=== PATIENT | female | born 1945 | race Caucasian/White ===

== ENCOUNTER → 2016-11-05 | Outpatient (CLI) | payer OTHER, BC ==
[~2016-11-05] MED LIST: GABA-113 PO; GFNSR600 PO; IPRASOL4 INH; LANS30CA12 PO; LVQ750 PO; MULT-506 PO; OMEP20CA9 PO; PARO1TAB27 PO; PRVHFAIN INH
--- NOTE | 2016-11-05 14:08 | DIAGNOSTIC IMAGING REPORT ---
RIGHT HIP UNILATERAL MIN 2 VIEWS CLINICAL HISTORY: Increasing right hip pain. COMPARISON: None FINDINGS: Alignment of the right hip is anatomic. There is no fracture or suspicious lesion. There is no evidence for avascular necrosis. The hip joint spaces preserved. There is moderate osteophytosis. IMPRESSION: 1. No acute fracture. 2. Mild to moderate osteoarthritis of the right hip. Preserved hip joint space with moderate osteophytosis. Electronically signed by: Davey Orona M.D. 11/05/2016 2:07 PM Dictated Date/Time: 11/05/2016 2:06 PM
== END | disposition home or self-care (01) ==
LOC: C.RDSM 11:46
PROVIDERS: ATTEND Family Medicine
DX: M16.11 Unilateral primary osteoarthritis, right hip (principal)

== ENCOUNTER → 2016-12-24 | Outpatient (CLI) | payer OTHER, BC ==
--- NOTE | 2016-12-24 15:59 | DIAGNOSTIC IMAGING REPORT ---
TEMPORARY HISTORY: -old Unknown acute right-sided hip pain without reported trauma. COMPARISON: Right hip radiographs 11/05/2016 TECHNIQUE: Single AP view of the pelvis FINDINGS: Moderate osteoarthritis is seen within the bilateral hips. Bilateral femora and pelvis appears intact. There is no acute fracture or dislocation. Degenerative changes of the lower lumbar spine. IMPRESSION: 1. No acute fracture or dislocation. 2. Moderate osteoarthritis of the bilateral hips. The above report was generated using voice recognition software. It may contain grammatical, syntax or spelling errors. Electronically signed by: Nigel Rao M.D. 12/24/2016 3:43 PM Dictated Date/Time: 12/24/2016 3:42 PM
== END | disposition home or self-care (01) ==
LOC: C.RDSM 14:59
PROVIDERS: ATTEND Family Medicine
DX: M25.551 Pain in right hip (principal); M16.0 Bilateral primary osteoarthritis of hip

== ENCOUNTER 2017-07-16 15:36 | Inpatient (IN) | payer OTHER, BC ==
[~2017-07-16] VITALS: Ht 154.9 cm; Wt 78.1 kg
[2017-07-16] MEDS ORDERED: SODIUM CHLORIDE 0.9% 1000ML 1,000 ML IV SCH ×2 (16:04→22:00)
[2017-07-16] MEDS ORDERED: OMEP20TA40 PO (16:04)
[2017-07-16] MEDS ORDERED: GABA-1219 PO (16:04)
[2017-07-16] MEDS ORDERED: ULT50 PO (16:04)
[2017-07-16] MEDS ORDERED: CYM60 PO (16:04)
[2017-07-16] MEDS ORDERED: CYM30 PO (16:04)
[2017-07-16] MEDS ORDERED: SIMV-150 PO (16:04)
[2017-07-16] MEDS ORDERED: OPTIRAY 320 IV PRN (16:15)
[2017-07-16 16:17] LABS: BASO % 0.6 %; BASO ABS # 0.04 K/uL (0-0.2); EOS % 0.9 %; EOS ABS # 0.06 K/uL (0-0.5); HEMATOCRIT 43.5 % (37-47); HEMOGLOBIN 15.3 g/dL (12.0-16.0); IG# 0.02 K/uL (0.00-0.02); LYMPH % 17.5 %; LYMPH ABS # 1.17 K/uL (1.2-3.4); MEAN CORPUSCULAR HGB CONC 35.2 g/dl (32-36); MEAN PLATELET VOLUME 10.8 fL (7.4-10.4); MONO ABS # 0.67 K/uL (0.11-0.59); NEUT % 70.7 %; NEUT ABS # 4.72 K/uL (1.4-6.5); PLATELET COUNT 209 K/uL (130-400); RED CELL DISTRIBUTION WIDTH CV 13.4 % (11.5-14.5); RED CELL DISTRIBUTION WIDTH SD 44.8 fL (36.4-46.3); WHITE BLOOD COUNT 6.68 K/uL (4.8-10.8)
[2017-07-16 16:22] LABS: ISTAT CREATININE 0.6 mg/dl (0.6-1.3); ISTAT IONIZED CALCIUM 1.1 mmol/l (1.12-1.32)
--- NOTE | 2017-07-16 16:25 | DIAGNOSTIC IMAGING REPORT ---
CT OF THE HEAD WITHOUT CONTRAST CLINICAL HISTORY: Stroke symptoms. COMPARISON STUDY: No previous studies for comparison. CT DOSE: 729.78 mGycm TECHNIQUE: Helical axial images of the head were obtained without IV contrast. Automated exposure control was utilized for the study. A dose lowering technique was utilized adhering to the principles of ALARA. FINDINGS: No acute intracranial hemorrhage, midline shift or mass effect is present. Ventricular system is normal. Basilar cisterns are patent. There are no extra axial collections. White matter hypodensities likely reflect small vessel disease. There is suspected subtle loss of gonsalez-white differentiation within the left frontal lobe shown best on axial images 22 and 23. There is no mass effect. There are no significant calvarial abnormalities. Visualized portions of the sinuses and mastoid air cells are clear. IMPRESSION: 1. No acute intracranial hemorrhage or mass effect. 2. Suspected loss of gonsalez-white differentiation within a portion of the left frontal lobe which suggests an acute left MCA infarct. Electronically signed by: Davey Orona M.D. 07/16/2017 4:23 PM Dictated Date/Time: 07/16/2017 4:17 PM
[2017-07-16 16:26] LABS: PTT PATIENT 24.3 SECONDS (21.0-31.0)
[2017-07-16] MEDS ORDERED: SODIUM CHLORIDE 0.9% 1000ML 1,000 ML IV STA (16:30)
[2017-07-16] MEDS ORDERED: MAGNESIUM SULFATE 1GM / D5W 1 GM BAG ONE (16:33)
--- NOTE | 2017-07-16 16:33 | DIAGNOSTIC IMAGING REPORT ---
HEAD ANGIO WITH CONTRAST CLINICAL HISTORY: L status change stroke TECHNIQUE: Transaxial acquisition with multi axial reformatted images COMPARISON STUDY: None FINDINGS: All major intracranial vasculature is unremarkable. No evidence for aneurysm or dissection. Major structures the anterior middle and posterior cerebral circulation are intact. IMPRESSION: Negative study The above report was generated using voice recognition software. It may contain grammatical, syntax or spelling errors. Electronically signed by: David Ordaz M.D. 07/16/2017 4:32 PM Dictated Date/Time: 07/16/2017 4:28 PM
[2017-07-16] MEDS ORDERED: MAGNESIUM SULFATE 1GM / D5W 1 GM BAG IV STA (16:35)
[2017-07-16 16:36] LABS: BLOOD UREA NITROGEN 12 mg/dl (7-18); CALCIUM 8.8 mg/dl (8.5-10.1); CARBON DIOXIDE 26 mmol/L (21-32); CREATININE 0.59 mg/dl (0.60-1.20); GLUCOSE 103 mg/dl (70-99); SODIUM 138 mmol/L (136-145)
[2017-07-16 16:41] LABS: CKMB 1.1 ng/ml (0.5-3.6)
--- NOTE | 2017-07-16 16:48 | DIAGNOSTIC IMAGING REPORT ---
CT ANGIOGRAPHY OF THE NECK WITH CONTRAST CLINICAL HISTORY: Stroke symptoms. COMPARISON STUDY: No previous studies for comparison. Technique: CT angiography of the carotid and vertebral arteries was obtained using Lela 320 IV and 3D reconstruction on an independent workstation. NASCET criteria was utilized. A dose lowering technique was utilized adhering to the principles of ALARA. CT DOSE: 935.06 mGycm Findings: There is moderate atherosclerotic plaque within the proximal bilateral internal carotid arteries without significant stenosis within these vessels. The posterior circulation is intact. There is no dissection. The origins of the great vessels are patent. Lung apices are clear. There is no cervical lymphadenopathy. The left submandibular gland is not visualized. There are several suspected calculi within the left submandibular duct which measure up to 4 mm. IMPRESSION: 1. Moderate atherosclerotic plaque within the bilateral internal carotid arteries without significant stenosis. No dissection. 2. Nonvisualization of the left submandibular gland. Suspected multiple calculi within left submandibular duct. Electronically signed by: Davey Orona M.D. 07/16/2017 4:46 PM Dictated Date/Time: 07/16/2017 4:34 PM
[2017-07-16] MEDS ORDERED: ASPIRIN 300 MG SUPP PR STA (16:54)
--- NOTE | 2017-07-16 16:58 | EMERGENCY ROOM VISIT NOTE ---
History Report prepared by Valerie: Katie Gomez Under the Supervision of: Dr. José Miguel Lozano M.D. First contact with patient: 16:04 Chief Complaint: STROKE SYMPTOMS Stated Complaint: STROKE SYMPTOMS Nursing Triage Summary: Woke up with right sided weakness. Patient with slurred speech. Right sided facial droop. Patient drove herself here. History of Present Illness The patient is a 71 year old female who presents to the Emergency Room with complaints of persistent stroke symptoms that began this morning, about 5 hours ago. She reports that when she woke up, she had right sided tongue swelling and was slurring her words. Throughout the day, the patient began experiencing a worsening right sided facial droop and inability to swallow. The patient states that about 3 hours ago, she began experiencing weakness in her right arm, noting that she currently cannot move her arm the way she normally can. She drove herself here. The patient's sister states that the patient is a heavy smoker. Source of History: patient, family (sister) Onset: this morning Position: other (cerebrovascular) Symptom Intensity: right sided facial droop and arm weakness Quality: other (stroke like symptoms) Timing: other (persistent) Note: Associated symptoms include: slurring her words, inability to swallow, right sided facial droop, and right sided arm weakness. Review of Systems See HPI for pertinent positives & negatives. A total of 10 systems reviewed and were otherwise negative. Past Medical & Surgical Medical Problems: (1) Anxiety (2) Depression (3) Fibromyalgia (4) Generalized OA (5) GERD (gastroesophageal reflux disease) (6) Obesity (BMI 30-39.9) (7) Stroke (8) Tobacco abuse disorder Family History FH: Alzheimers disease FH: CAD (coronary artery disease) FH: lymphoma Social History Smoking Status: Current Every Day Smoker Smokeless Tobacco Use: Unknown Alcohol Use: none Drug Use: none Current/Historical Medications Scheduled Duloxetine HCl (Duloxetine HCl), 30 MG PO DAILY Duloxetine HCl (Duloxetine HCl), 60 MG PO DAILY Gabapentin (Gabapentin), 300 MG PO TID Multivitamin (Multivitamin), 1 TAB PO QPM Omeprazole ([facility] Omeprazole), 20 MG PO DAILY Simvastatin (Simvastatin), 10 MG PO HS Scheduled PRN Tramadol HCl (Tramadol HCl), 50 MG PO BID PRN for Pain Allergies Coded Allergies: No Known Allergies (Unverified , 07/16/17) Physical Exam Vital Signs Date Time Temp Pulse Resp B/P (MAP) Pulse Ox O2 Delivery O2 Flow Rate FiO2 07/16/17 16:38 71 07/16/17 16:30 73 18 172/87 95 Room Air 07/16/17 16:30 96 Room Air 07/16/17 15:39 36.8 80 20 160/99 97 Room Air Physical Exam GENERAL: Awake, alert, well-appearing, in no acute distress HENT: Normocephalic, atraumatic. Oropharynx unremarkable. EYES: Normal conjunctiva. Sclera non-icteric. NECK: Supple. No nuchal rigidity. FROM. No JVD. RESPIRATORY: Clear to auscultation. CARDIAC: Regular rate, normal rhythm. Extremities warm and well perfused. Pulses equal. ABDOMEN: Soft, non-distended. No tenderness to palpation. No rebound or guarding. No masses. RECTAL: Deferred. MUSCULOSKELETAL: Chest examination reveals no tenderness. The back is symmetrical on inspection without obvious abnormality. There is no CVA tenderness to palpation. No joint edema. LOWER EXTREMITIES: Calves are equal size bilaterally and non-tender. No edema. No discoloration. NEURO: 3/5 strength in right arm. Obvious right sided facial droop. SKIN: No rash or jaundice noted. Medical Decision & Procedures ER Provider Diagnostic Interpretation: Radiology results as stated below per my review and radiologist interpretation: HEAD ANGIO WITH CONTRAST CLINICAL HISTORY: L status change stroke TECHNIQUE: Transaxial acquisition with multi axial reformatted images COMPARISON STUDY: None FINDINGS: All major intracranial vasculature is unremarkable. No evidence for aneurysm or dissection. Major structures the anterior middle and posterior cerebral circulation are intact. IMPRESSION: Negative study The above report was generated using voice recognition software. It may contain grammatical, syntax or spelling errors. Electronically signed by: David Ordaz M.D. 07/16/2017 4:32 PM Dictated Date/Time: 07/16/2017 4:[address] ANGIOGRAPHY OF THE NECK WITH CONTRAST CLINICAL HISTORY: Stroke symptoms. COMPARISON STUDY: No previous studies for comparison. Technique: CT angiography of the carotid and vertebral arteries was obtained using [employer] 320 IV and 3D reconstruction on an independent workstation. NASCET criteria was utilized. A dose lowering technique was utilized adhering to the principles of ALARA. CT DOSE: 935.06 mGycm Findings: There is moderate atherosclerotic plaque within the proximal bilateral internal carotid arteries without significant stenosis within these vessels. The posterior circulation is intact. There is no dissection. The origins of the great vessels are patent. Lung apices are clear. There is no cervical lymphadenopathy. The left submandibular gland is not visualized. There are several suspected calculi within the left submandibular duct which measure up to 4 mm. IMPRESSION: 1. Moderate atherosclerotic plaque within the bilateral internal carotid arteries without significant stenosis. No dissection. 2. Nonvisualization of the left submandibular gland. Suspected multiple calculi within left submandibular duct. Electronically signed by: Davey Orona M.D. 07/16/2017 4:46 PM Dictated Date/Time: 07/16/2017 4:[address] OF THE HEAD WITHOUT CONTRAST CLINICAL HISTORY: Stroke symptoms. COMPARISON STUDY: No previous studies for comparison. CT DOSE: 729.78 mGycm TECHNIQUE: Helical axial images of the head were obtained without IV contrast. Automated exposure control was utilized for the study. A dose lowering technique was utilized adhering to the principles of ALARA. FINDINGS: No acute intracranial hemorrhage, midline shift or mass effect is present. Ventricular system is normal. Basilar cisterns are patent. There are no extra axial collections. White matter hypodensities likely reflect small vessel disease. There is suspected subtle loss of gonsalez-white differentiation within the left frontal lobe shown best on axial images 22 and 23. There is no mass effect. There are no significant calvarial abnormalities. Visualized portions of the sinuses and mastoid air cells are clear. IMPRESSION: 1. No acute intracranial hemorrhage or mass effect. 2. Suspected loss of gonsalez-white differentiation within a portion of the left frontal lobe which suggests an acute left MCA infarct. Electronically signed by: Davey Orona M.D. 07/16/2017 4:23 PM Dictated Date/Time: 07/16/2017 4:17 PM CHEST ONE VIEW PORTABLE CLINICAL HISTORY: Stroke COMPARISON STUDY: Chest radiograph and chest CT August 09, 2015. FINDINGS: Lung volumes are normal. There is no pneumothorax or pleural effusion. Mild linear bibasilar opacities favor atelectasis. Mild cardiomegaly is noted. There is no evidence for pulmonary edema. IMPRESSION: No acute cardiopulmonary findings. Electronically signed by: Davey Orona M.D. 07/16/2017 5:18 PM Dictated Date/Time: 07/16/2017 5:17 PM Laboratory Results 07/16/17 16:00 Red Blood Count 4.78, Mean Corpuscular Volume 91.0, Mean Corpuscular Hemoglobin 32.0, Mean Corpuscular Hemoglobin Concent 35.2, Mean Platelet Volume 10.8, Neutrophils (%) (Auto) 70.7, Lymphocytes (%) (Auto) 17.5, Monocytes (%) (Auto) 10.0, Eosinophils (%) (Auto) 0.9, Basophils (%) (Auto) 0.6, Neutrophils # (Auto ) 4.72, Lymphocytes # (Auto) 1.17, Monocytes # (Auto) 0.67, Eosinophils # (Auto ) 0.06, Basophils # (Auto) 0.04 07/16/17 16:00 Test 07/16/17 16:00 07/16/17 16:09 07/16/17 16:12 07/16/17 17:06 White Blood Count 6.68 K/uL (4.8-10.8) Red Blood Count 4.78 M/uL (4.2-5.4) Hemoglobin 15.3 g/dL (12.0-16.0) Hematocrit 43.5 % (37-47) Mean Corpuscular Volume 91.0 fL (80-100) Mean Corpuscular Hemoglobin 32.0 pg (25-34) Mean Corpuscular Hemoglobin Concent 35.2 g/dl (32-36) Platelet Count 209 K/uL (130-400) Mean Platelet Volume 10.8 fL (7.4-10.4) Neutrophils (%) (Auto) 70.7 % Lymphocytes (%) (Auto) 17.5 % Monocytes (%) (Auto) 10.0 % Eosinophils (%) (Auto) 0.9 % Basophils (%) (Auto) 0.6 % Neutrophils # (Auto) 4.72 K/uL (1.4-6.5) Lymphocytes # (Auto) 1.17 K/uL (1.2-3.4) Monocytes # (Auto) 0.67 K/uL (0.11-0.59) Eosinophils # (Auto) 0.06 K/uL (0-0.5) Basophils # (Auto) 0.04 K/uL (0-0.2) RDW Standard Deviation 44.8 fL (36.4-46.3) RDW Coefficient of Variation 13.4 % (11.5-14.5) Immature Granulocyte % (Auto) 0.3 % Immature Granulocyte # (Auto) 0.02 K/uL (0.00-0.02) Prothrombin Time 10.3 SECONDS (9.0-12.0) Prothromb Time International Ratio 1.0 (0.9-1.1) Activated Partial Thromboplast Time 24.3 SECONDS (21.0-31.0) Partial Thromboplastin Ratio 0.9 Est Creatinine Clear Calc Drug Dose 82.8 ml/min Estimated GFR () 108.4 Estimated GFR (Non- 93.5 BUN/Creatinine Ratio 20.6 (10-20) Calcium Level 8.8 mg/dl (8.5-10.1) Magnesium Level 2.2 mg/dl (1.8-2.4) Total Creatine Kinase 55 U/L (26-192) Creatine Kinase MB 1.1 ng/ml (0.5-3.6) Creatine Kinase MB Ratio 2.0 (0-3.0) Troponin I < 0.015 ng/ml (0-0.045) Triglycerides Level 48 mg/dl (0-150) Cholesterol Level 138 mg/dl (0-200) HDL Cholesterol 54 mg/dl LDL Cholesterol, Calculated 74 mg/dl VLDL Cholesterol, Calculated 10 mg/dl Cholesterol/HDL Ratio 2.6 Bedside Glucose 104 mg/dl (70-90) Bedside Hemoglobin 15.0 g/dl (12.0-16.0) Bedside Hematocrit 44 % (37-47) Bedside Sodium 141 mEq/L (135-144) Bedside Potassium 4.0 mEq/L (3.3-5.0) Bedside Chloride 103 mEq/L (101-112) Bedside Total CO2 27 mEq/l (24-31) Anion Gap 16.0 mmol/L (16-25) Bedside Blood Urea Nitrogen 12 mg/dl (7-18) Bedside Creatinine 0.6 mg/dl (0.6-1.3) Bedside Glucose (other) 104 mg/dl (70-99) Bedside Ionized Calcium (Denys) 1.10 mmol/l (1.12-1.32) Urine Color YELLOW Urine Appearance CLEAR (CLEAR) Urine pH 6.5 (4.5-7.5) Urine Specific [place] <= 1.005 (1.000-1.030) Urine Protein NEG (NEG) Urine Glucose (UA) NEG (NEG) Urine Ketones NEG (NEG) Urine Occult Blood TRACE (NEG) Urine Nitrite NEG (NEG) Urine Bilirubin NEG (NEG) Urine Urobilinogen NEG (NEG) Urine Leukocyte Esterase NEG (NEG) Urine RBC 0-4 /hpf (0-4) Urine WBC 0 /hpf (0-5) Urine Epithelial Cells 0-5 /lpf (0-5) Urine Bacteria NEG (NEG) Labs reviewed by ED physician. Medications Administered Medications (Trade) Dose Ordered Sig/Martha Route Start Time Stop Time Status Last Admin Dose Admin Sodium Chloride 1,000 ml @ 999 mls/hr Q1H1M STAT IV 07/16/17 16:30 07/16/17 17:30 DC 07/16/17 16:36 999 MLS/HR Magnesium Sulfate (Magnesium Sulfate) 1 gm NOW STAT IV 07/16/17 16:35 07/16/17 16:36 DC 07/16/17 16:37 1 GM Aspirin (Aspirin Supp) 300 mg ONE STAT ID 07/16/17 16:54 07/16/17 16:55 DC 07/16/17 17:21 300 MG ECG Per My Interpretation Indication: other (stroke) Rate (beats per minute): 73 Rhythm: normal sinus Findings: other (No ST elevations or depression, old septal infarct) ED Course 1600: Past medical records reviewed. The patient was evaluated in room C6. A complete history and physical examination was performed. 1604: Ordered Sodium Chloride 1000ml @ 50mls/hr IV. 1610: The patient is being transported to CT. 1615: Ordered Ioversol 100ml IV. 1620: I discussed the patient's case with Dr. Orona. We discussed the patient's CT head findings. 1630: Ordered Sodium Chloride 1000ml @ 999 mls/hr IV. 1632: I discussed the patient's case with Dr. Daniel, [facility]. We evaluated the CT scans together. He does not think that she is a good candidate for TPA. Discussed the choice of going the patient TPA with the patient and her sister. Due to the circumstances, the four of decided not to give her TPA. 1633: Ordered Magnesium Sulfate 1gm IV. 1654: Ordered Aspirin 300mg. 1704: I discussed the patient's case with Pj Andujar PA-C. She has agreed to evaluate the patient for further management and care. 1716: I reevaluated the patient and updated her and her sister on the treatment plan. They verbalized complete understanding and agreement. Medical Decision Differential diagnosis: Etiologies such as metabolic, infection, hypo/hyperglycemia, electrolyte abnormalities, cardiac sources, intracerebral event, toxicologic, neurologic, as well as others were entertained. This is a 71-year-old female who presents emergency department. Upon arrival to the emergency department the patient has 3 out of 5 strength in her right arm and for this reason a stroke alert was immediately initiated. Due to [employer] downtime images had to be verbally reviewed with [facility] stroke neurologist. In addition the stroke neurologist cart was on was nonfunctioning however a telephone call with the neurologist confirmed that both myself and the neurologist felt that the patient did not meet TPA criteria as she awoke this morning at 11 AM with the start of symptoms. At this point we are 5 hours into the patient's symptoms. I expressed this to both patient and her sister and also expressed concerns over that she was at high risk for bleed if we did do TPA. A CTA of the head and neck were also performed which did not show any retrievable clot. Therefore the neurologist felt that the patient should take 324 mg of aspirin. I did discuss the case with the [facility] Hospital[facility]. Medication Reconcilliation Current Medication List: was personally reviewed by me Blood Pressure Screening Patient's blood pressure: Elevated blood pressure Blood pressure disposition: Elevated BP felt to be situational Consults Time Called: 1704 Consulting Physician: Pj Andujar PA-C Returned Call: 1704 I discussed the patient's case with Pj Andujar PA-C. She has agreed to evaluate the patient for further management and care. Impression Primary Impression: CVA (cerebral vascular accident) Critical Care I have personally spent greater than 30 minutes of critical care time in the direct management of this patient. This includes bedside care, interpretation of diagnostic studies, and testing, discussion with consultants, patient, and family members, and other required patient management activities. This 30 minutes is in excess of all separately billable procedures. Scribe Attestation The scribe's documentation has been prepared under my direction and personally reviewed by me in its entirety. I confirm that the note above accurately reflects all work, treatment, procedures, and medical decision making performed by me. Departure Information Dispostion Being Evaluated By Hospitalist Referrals Kary Chan D.O. (PCP) Forms HOME CARE DOCUMENTATION FORM, IMPORTANT VISIT INFORMATION Patient Instructions My [facility] Stroke History Time Last Known Well 1100 Stroke t-PA Criteria Reviewed Does NOT meet criteria for t-PA Reason t-PA Not Given Contraindicated Relative Exclusion Criteria CT w/ significant acute infarct Problem Qualifiers Primary Impression: CVA (cerebral vascular accident) CVA mechanism: unspecified Qualified Codes: I63.9 - Cerebral infarction, unspecified
--- NOTE | 2017-07-16 17:19 | DIAGNOSTIC IMAGING REPORT ---
CHEST ONE VIEW PORTABLE CLINICAL HISTORY: Stroke COMPARISON STUDY: Chest radiograph and chest CT August 09, 2015. FINDINGS: Lung volumes are normal. There is no pneumothorax or pleural effusion. Mild linear bibasilar opacities favor atelectasis. Mild cardiomegaly is noted. There is no evidence for pulmonary edema. IMPRESSION: No acute cardiopulmonary findings. Electronically signed by: Davey Orona M.D. 07/16/2017 5:18 PM Dictated Date/Time: 07/16/2017 5:17 PM
[2017-07-16] MEDS ORDERED: ACETAMINOPHEN 650 MG SUPP PR PRN (22:00)
[2017-07-16] MEDS ORDERED: LABETALOL HCL IV 5 MG/ML 20ML IV PRN (22:00)
[2017-07-16] MEDS ORDERED: ONDANSETRON INJ 2 MG/ML 2 ML VIAL IV PRN (22:00)
[2017-07-16] MEDS ORDERED: PHARMACIST DISCHARGE MED REC CONSULT PRN (22:15)
[2017-07-16] MEDS ORDERED: NITROGLYCERIN 0.4 MG SL PER TAB CHARGE SL PRN (22:15)
[2017-07-16] MEDS ORDERED: ACETAMINOPHEN 325 MG TAB PO PRN (22:15)
--- NOTE | 2017-07-16 22:44 | History and Physical ---
History & Physical Date & Time of Service: Jul 16, 2017 at 22:22 Chief Complaint: Stroke Primary Care Physician: Kary Chan D.O. History of Present Illness Source: patient, family, clinic records, hospital records Pt is 71 y/o F with PMH fibromyalgia, GERD, depression, anxiety, dyslipidemia presented to ER with complaint of right-sided facial drooping. Patient reports woke up around 11 AM today and noticed she had some slurred speech and had sensation that right side of tongue felt swollen. She had trouble swallowing her coffee. Patient states later looked in mirror and saw that she had right facial drooping and was able to smile. At approximately 1:00-2:00 PM patient reports right arm weakness. She proceeded to drive herself to the ER in a standard collar. Patient states once in the ER had worsening right arm weakness and was able to inspector tool with her right hand, which has since improved during ER course. Denies fever/chills, diaphoresis, N/V/D/C, JUNG, dizziness, syncope, vision changes, neck pain, CP, SOB, orthopnea, palpitations, cough, otalgia, rhinorrhea, abdominal pain, extremity edema, rashes, urinary symptoms. Denies history of HTN, TIA, stroke. In ER patient given aspirin 300 mg suppository, magnesium sulfate 1 g IV, 1 L NSS. Had her she telemetry stroke recommended no TPA. Past Medical/Surgical History Medical Problems: (1) Anxiety Status: Chronic (2) Depression Status: Chronic (3) Dyslipidemia Status: Chronic (4) Fibromyalgia Status: Chronic (5) Generalized OA Status: Chronic (6) GERD (gastroesophageal reflux disease) Status: Chronic (7) Obesity (BMI 30-39.9) Status: Chronic (8) Tobacco abuse disorder Status: Chronic Surgical Problems: (1) History of salivary gland disease Permanent Comment: hx salivary stones and removal L salivary gland Status: Resolved Family History FH: Alzheimers disease FH: CAD (coronary artery disease) FH: lymphoma Social History Smoking Status: Current Every Day Smoker (1ppd x 29 years) Smokeless Tobacco Use: No Alcohol Use: none Drug Use: none Marital Status: Housing status: lives alone Allergies Coded Allergies: No Known Allergies (Unverified , 07/16/17) Home Medications Scheduled Duloxetine HCl (Duloxetine HCl), 30 MG PO DAILY Duloxetine HCl (Duloxetine HCl), 60 MG PO DAILY Gabapentin (Gabapentin), 300 MG PO TID Multivitamin (Multivitamin), 1 TAB PO QPM Omeprazole ([facility] Omeprazole), 20 MG PO DAILY Simvastatin (Simvastatin), 10 MG PO HS Scheduled PRN Tramadol HCl (Tramadol HCl), 50 MG PO BID PRN for Pain Review of Systems See HPI for pertinent positives & negatives. All other systems reviewed and were otherwise negative Physical Exam Vital Signs Date Time Temp Pulse Resp B/P (MAP) Pulse Ox O2 Delivery O2 Flow Rate FiO2 07/16/17 16:38 71 07/16/17 16:30 73 18 172/87 95 Room Air 07/16/17 16:30 96 Room Air 07/16/17 15:39 36.8 80 20 160/99 97 Room Air General Appearance: no apparent distress, + obese Head: normocephalic, atraumatic Eyes: normal inspection, PERRL, EOMI, sclerae normal ENT: hearing grossly normal, pharynx normal, + pertinent finding (no pharyngeal erythema or edema. Tongue without significant erythema and without edema. uvula midline. mucous membranes moist. ) Neck: supple, no JVD, trachea midline Respiratory/Chest: lungs clear, normal breath sounds, no respiratory distress Cardiovascular: regular rate, rhythm, no murmur, normal peripheral pulses Abdomen/GI: normal bowel sounds, non tender, soft Extremities/Musculoskelatal: no calf tenderness, normal capillary refill, no pedal edema, non-tender, + pertinent finding (Right arm with ROM intact with slow movements. Right inspector tool strength slightly less than left side. ROM bilateral extremities intact with equal strength. distal pulses intact. sensation to light touch intact) Neurologic/Psych: alert, oriented x 3, + facial droop (right sided), + pertinent finding (+slurred speech. Tongue protrudes to right side. finger to nose intact bilaterally with slow movements with right hand. ) Skin: normal color, warm/dry Diagnostics Laboratory Results Results Past 24 Hours Test 07/16/17 16:00 07/16/17 16:09 07/16/17 16:12 07/16/17 17:06 Range/Units White Blood Count 6.68 4.8-10.8 K/uL Red Blood Count 4.78 4.2-5.4 M/uL Hemoglobin 15.3 12.0-16.0 g/dL Hematocrit 43.5 37-47 % Mean Corpuscular Volume 91.0 80-100 fL Mean Corpuscular Hemoglobin 32.0 25-34 pg Mean Corpuscular Hemoglobin Concent 35.2 32-36 g/dl Platelet Count 209 130-400 K/uL Mean Platelet Volume 10.8 7.4-10.4 fL Neutrophils (%) (Auto) 70.7 % Lymphocytes (%) (Auto) 17.5 % Monocytes (%) (Auto) 10.0 % Eosinophils (%) (Auto) 0.9 % Basophils (%) (Auto) 0.6 % Neutrophils # (Auto) 4.72 1.4-6.5 K/uL Lymphocytes # (Auto) 1.17 1.2-3.4 K/uL Monocytes # (Auto) 0.67 0.11-0.59 K/uL Eosinophils # (Auto) 0.06 0-0.5 K/uL Basophils # (Auto) 0.04 0-0.2 K/uL RDW Standard Deviation 44.8 36.4-46.3 fL RDW Coefficient of Variation 13.4 11.5-14.5 % Immature Granulocyte % (Auto) 0.3 % Immature Granulocyte # (Auto) 0.02 0.00-0.02 K/uL Prothrombin Time 10.3 9.0-12.0 SECONDS Prothromb Time International Ratio 1.0 0.9-1.1 Activated Partial Thromboplast Time 24.3 21.0-31.0 SECONDS Partial Thromboplastin Ratio 0.9 Sodium Level 138 136-145 mmol/L Potassium Level 4.0 3.5-5.1 mmol/L Chloride Level 106 98-107 mmol/L Carbon Dioxide Level 26 21-32 mmol/L Anion Gap 6.0 16.0 16-25 mmol/L Blood Urea Nitrogen 12 7-18 mg/dl Creatinine 0.59 0.60-1.20 mg/dl Est Creatinine Clear Calc Drug Dose 82.8 ml/min Estimated GFR () 108.4 Estimated GFR (Non- 93.5 BUN/Creatinine Ratio 20.6 10-20 Random Glucose 103 70-99 mg/dl Calcium Level 8.8 8.5-10.1 mg/dl Magnesium Level 2.2 1.8-2.4 mg/dl Total Creatine Kinase 55 26-192 U/L Creatine Kinase MB 1.1 0.5-3.6 ng/ml Creatine Kinase MB Ratio 2.0 0-3.0 Troponin I < 0.015 0-0.045 ng/ml Triglycerides Level 48 0-150 mg/dl Cholesterol Level 138 0-200 mg/dl HDL Cholesterol 54 mg/dl LDL Cholesterol, Calculated 74 mg/dl VLDL Cholesterol, Calculated 10 mg/dl Cholesterol/HDL Ratio 2.6 Bedside Glucose 104 70-90 mg/dl Bedside Hemoglobin 15.0 12.0-16.0 g/dl Bedside Hematocrit 44 37-47 % Bedside Sodium 141 135-144 mEq/L Bedside Potassium 4.0 3.3-5.0 mEq/L Bedside Chloride 103 101-112 mEq/L Bedside Total CO2 27 24-31 mEq/l Bedside Blood Urea Nitrogen 12 7-18 mg/dl Bedside Creatinine 0.6 0.6-1.3 mg/dl Bedside Glucose (other) 104 70-99 mg/dl Bedside Ionized Calcium (Denys) 1.10 1.12-1.32 mmol/l Urine Color YELLOW Urine Appearance CLEAR CLEAR Urine pH 6.5 4.5-7.5 Urine Specific [place] <= 1.005 1.000-1.030 Urine Protein NEG NEG Urine Glucose (UA) NEG NEG Urine Ketones NEG NEG Urine Occult Blood TRACE NEG Urine Nitrite NEG NEG Urine Bilirubin NEG NEG Urine Urobilinogen NEG NEG Urine Leukocyte Esterase NEG NEG Urine RBC 0-4 0-4 /hpf Urine WBC 0 0-5 /hpf Urine Epithelial Cells 0-5 0-5 /lpf Urine Bacteria NEG NEG Diagnostic Radiology CT HEAD: IMPRESSION: 1. No acute intracranial hemorrhage or mass effect. 2. Suspected loss of gonsalez-white differentiation within a portion of the left frontal lobe which suggests an acute left MCA infarct. CXR: IMPRESSION: No acute cardiopulmonary findings. CTA HEAD: IMPRESSION: Negative study CTA NECK: IMPRESSION: 1. Moderate atherosclerotic plaque within the bilateral internal carotid arteries without significant stenosis. No dissection. 2. Nonvisualization of the left submandibular gland. Suspected multiple calculi within left submandibular duct. EKG EKG: NSR, L anterior fascicular block Read by rfid strategist: Normal sinus rhythm Left anterior fascicular block Cannot rule out Inferior infarct (cited on or before 09-AUG-2015) Abnormal ECG When compared with ECG of 09-AUG-2015 17:48, Questionable change in initial forces of Anterior leads Confirmed by Carroll Hubbard ([id number]) on 07/16/2017 4:45:53 PM Impression Assessment and Plan R SIDED FACIAL DROOP/DYSPHAGIA/STROKE Symptoms noticed when pt woke up at approx 11AM this morning with slurred speech , R facial drooping, then R arm weakness. Tele stroke recommended no TPA and recommended ASA. Pt given ASA 300mg per rectum In ER CT HEAD: 1. No acute intracranial hemorrhage or mass effect. 2. Suspected loss of gonsalez-white differentiation within a portion of the left frontal lobe which suggests an acute left MCA infarct. CTA HEAD: Negative study CTA NECK: 1. Moderate atherosclerotic plaque within the bilateral internal carotid arteries without significant stenosis. No dissection. -admit tele -stroke set protocol -neuro checks Q4H -NPO with dysphagia until evaluated by speech therapy -holding po home meds at this time -holding on statin and plavix at this time 2/2 dysphagia -NSS 50ml/hr -Labetalol 10mg IV Q6H prn SBP>220 or DBP>140 -ASA 300mg supp per rectum tomorrow am -Echo -pending lipid panel -TSH added -CBC, PRP in am -smoking cessation counseling -speech therapy consult -PT/OT eval -Neuro consult, appreciate input DYSLIPIDEMIA Pending lipid panel -holding statin 2/2 dysphagia GERD -holding oral PPI 2/2 dysphagia -IV PPI today DEPRESSION/ANXIETY -holding Cymbalta 2/2 dysphagia FIBROMYALGIA -holding gabapentin 2/2 dysphagia DVT Prophylaxis -Heparin SQ Disposition admit tele Full Code as per discussion with pt Follows with Dr Chan for routine care Pt was seen with Dr Riley. See addendum Attending Note: Patient is a 71 yr female who presents with history of sudden onset of Right facial droop, Slurred speech, Dysphagia, RUE weakness as per HPI. Patient's CT head is suggestive acute left MCA infarct. Patient's symptoms (Speech and RUE weakness) improved after administration of Aspirin while in ED. She is a current smoker. Denies Strokes/ TIAs in the past Physical Exam: Vitals signs as noted above General Appearance:Moderately built and nourished, no apparent distress Head: normocephalic, Atraumatic, +R facial droop Eyes: normal inspection, EOMI, PERRL Neck: supple, Trachea midline Respiratory/Chest: Normal breath sounds, CTA, No accessory muscle use Cardiovascular: S1, S2, No murmur Abdomen/GI:Soft, Non tender, Bowel sounds present Extremities/Musculoskelatal:normal inspection, no edema Neurologic/Psych:AAOX3, RUE 4/5, R facial droop, Slurred speech, No other focal deficits Skin:normal color,warm Assessment and Plan: Acute Left MCA CVA: Not a candidate for tPA- Passed the window period Admit in Tele CT head: suggestive of acute CVA Stroke work up as above Speech and swallow eval Start aspirin Plan to start Lipitor, Plavix as able (Currently has dysphagia) Neuro checks, Neurology consult PT/OT Allow permissive HTN in setting of acute CVA counselled to quit smoking I personally reviewed the record. Patient is interviewed and examined at bedside. Patient's care is coordinated with Sheridan Vila PA-C. Please refer to the documentation above for details of patient's presentation and for discussion of other issues. Resuscitation Status VTE Prophylaxis Will order VTE Prophylaxis: Yes Additional Copies To Kary Chan D.O.
[2017-07-17] VITALS (13 sets, daily range): BP systolic 125–170; BP diastolic 67–88; PULSE 54–67; TEMP 36.4–37.3; O2SAT 92–98; Ht 154.9 cm; Wt 78.1 kg
[2017-07-17] MEDS: HEPARIN SOD 5000 UNIT/0.5 ML CARP SQ SCH ×3 (06:13→21:43)
[2017-07-17 06:48] LABS: HEMATOCRIT 41.1 % (37-47); HEMOGLOBIN 14.5 g/dL (12.0-16.0); MEAN CELL VOLUME 91.3 fL (80-100); MEAN CORPUSCULAR HEMOGLOBIN 32.2 pg (25-34); MEAN CORPUSCULAR HGB CONC 35.3 g/dl (32-36); MEAN PLATELET VOLUME 10.9 fL (7.4-10.4); PLATELET COUNT 200 K/uL (130-400); RED CELL DISTRIBUTION WIDTH CV 13.4 % (11.5-14.5); RED CELL DISTRIBUTION WIDTH SD 44.3 fL (36.4-46.3); WHITE BLOOD COUNT 6.52 K/uL (4.8-10.8)
[2017-07-17 07:22] LABS: CALCIUM 8.5 mg/dl (8.5-10.1); CREATININE 0.5 mg/dl (0.60-1.20); POTASSIUM 3.7 mmol/L (3.5-5.1)
[2017-07-17] MEDS ORDERED: ASPIRIN 300 MG SUPP PR SCH (09:00)
--- NOTE | 2017-07-17 10:42 | ECHOCARDIOGRAM REPORT ---
*NOTICE TO RECEIVING REPUBLICAN AGENCY This information is strictly Confidential and protected under [place] law. [place] law prohibits you from making any further disclosure of this information unless further disclosure is expressly permitted by the written consent of the person to whom it pertains or is authorized by law. A general authorization for the release of medical or other information is not sufficient for this purpose. Hospital accepts no responsibility if the information is made available to any other person, INCLUDING THE PATIENT. Interpretation Summary * Name: GREY LAY Study Date: 07/17/2017 07:55 AM BP: 144/79 mmHg * Patient Location: C.2E\S\E204\S\1 HR: 58 * : 1945 (M/d/yyyy) Gender: Female Height: 61 in * Age: 71 yrs Ethnicity: [place] Weight: 163 lb * Ordering Physician: Sheridan Vila * Referring Physician: Self, Referred * Performed By: Yaquelin Shelby RDCS * * Reason For Study: CEREBRAL ISCHEMIA/EMBOLUS * BSA: 1.7 m2 * -- Conclusions -- * Normal LV chamber size with moderate concentric LVH. * Normal LV systolic function, EF 60-65%. * No segmental left ventricular wall motion abnormalities are noted. * Grade I diastolic dysfunction. * Aortic valve sclerosis mild, without significant aortic valvular stenosis. * The interatrial septum is intact with no evidence for an atrial septal defect. * Injection of contrast documented no interatrial shunt. * Small, loculated anterior pericardial effusion with stranding to suggest chronicity. Procedure Details * A saline contrast injection was performed to assess for cardiac shunting. * The injection was performed through an intravenous line in the left arm. * The attending nurse who injected the saline contrast was OLMAN CUNNINGHAM. * A total of 10 cc of agitated saline was given. Left Ventricle * The left ventricle is normal in size. * There is moderate concentric left ventricular hypertrophy. * Ejection Fraction = 60-65%. * Left ventricular systolic function is normal. * No segmental left ventricular wall motion abnormalities are noted. * The left ventricular wall motion is normal. Right Ventricle * The right ventricular cavity size is normal (basal dimension <4.2 cm in right ventricular apical 4-chamber view). * The right ventricular systolic function is normal as assessed by tricuspid annular plane systolic excursion (TAPSE) (normal >1.5 cm). Atria * The left atrial size is normal. * Right atrial size is normal. * The interatrial septum is intact with no evidence for an atrial septal defect. * Injection of contrast documented no interatrial shunt. Mitral Valve * The mitral valve is normal in structure and function. Tricuspid Valve * The tricuspid valve is normal in structure and function. Aortic Valve * The aortic valve is trileaflet. * Aortic valve sclerosis mild, without significant aortic valvular stenosis. * There is no significant aortic regurgitation. Pulmonic Valve * The pulmonary valve is not well seen, but the Doppler examination is normal without significant regurgitation or stenosis. Great Vessels * The aortic root is normal size. Pericardium/Pleural * Small pericardial effusion. * A loculated pericardial effusion is noted. Left Ventricular Diastolic Function * Grade I diastolic dysfunction, (abnormal relaxation pattern). MMode 2D Measurements and Calculations IVSd 1.4 cm IVSs 1.6 cm LVIDd 4.0 cm LVIDs 2.7 cm LVPWd 1.4 cm LVPWs 1.3 cm IVS/LVPW 10 FS 33.6 % EDV(Teich) 71.9 ml ESV(Teich) 26.7 ml EF(Teich) 62.9 % EDV(cubed) 66.2 ml ESV(cubed) 19.4 ml EF(cubed) 70.7 % % IVS thick 18.6 % % LVPW thick -3.65 % LV mass(C)d 209.6 grams LV mass(C)dI 121.0 grams/m\S\2 LV mass(C)s 136.1 grams LV mass(C)sI 78.6 grams/m\S\2 SV(Teich) 45.2 ml SI(Teich) 26.1 ml/m\S\2 SV(cubed) 46.8 ml SI(cubed) 27.0 ml/m\S\2 Ao root diam 3.2 cm Ao root area 8.0 cm\S\2 LA dimension 3.4 cm LA/Ao 1.1 LVAd ap4 28.0 cm\S\2 LVLd ap4 8.1 cm EDV(MOD-sp4) 77.6 ml EDV(sp4-el) 81.9 ml LVAs ap4 15.3 cm\S\2 LVLs ap4 6.4 cm ESV(MOD-sp4) 30.9 ml ESV(sp4-el) 31.5 ml EF(MOD-sp4) 60.1 % EF(sp4-el) 61.6 % LVAd ap2 27.8 cm\S\2 LVLd ap2 8.6 cm EDV(MOD-sp2) 74.0 ml EDV(sp2-el) 76.6 ml LVAs ap2 14.2 cm\S\2 LVLs ap2 6.7 cm ESV(MOD-sp2) 25.3 ml ESV(sp2-el) 25.6 ml EF(MOD-sp2) 65.8 % EF(sp2-el) 66.6 % LVLd %diff 5.2 % EDV(MOD-bp) 76.5 ml LVLs %diff 5.3 % ESV(MOD-bp) 28.8 ml EF(MOD-bp) 62.3 % SV(MOD-sp4) 46.7 ml SI(MOD-sp4) 27.0 ml/m\S\2 SV(MOD-sp2) 48.7 ml SI(MOD-sp2) 28.1 ml/m\S\2 SV(MOD-bp) 47.7 ml SI(MOD-bp) 27.5 ml/m\S\2 SV(sp4-el) 50.5 ml SI(sp4-el) 29.1 ml/m\S\2 SV(sp2-el) 51.0 ml SI(sp2-el) 29.4 ml/m\S\2 Doppler Measurements and Calculations MV E max john 86.3 cm/sec MV A max john 113.8 cm/sec MV E/A 0.76 MV dec time 0.25 sec Ao V2 max 179.6 cm/sec Ao max PG 12.9 mmHg Ao max PG (full) 4.0 mmHg LV V1 max PG 8.9 mmHg LV V1 max 149.1 cm/sec
[2017-07-17] MEDS: ATORVASTATIN 40 MG TAB PO SCH (11:49)
[2017-07-17] MEDS ORDERED: ASPIRIN 81 MG ECTAB PO STA (12:43)
[2017-07-17] MEDS ORDERED: CLOPIDOGREL BISULFATE 75 MG TAB PO ONE (12:45)
--- NOTE | 2017-07-17 12:55 | Progress Note ---
Subjective Date of Service: Jul 17, 2017. Subjective Pt evaluation today including: conversation w/ patient, physical exam, lab review, review of studies, review of inpatient medication list Saw/examined the patient in room 204 She is doing okay and tells me she wants to go home L arm weakness improved, no lower extremity weakness facial droop on the L persists, has not passed swallowing evaluation yet Problem List Medical Problems: (1) CVA (cerebral vascular accident) Status: Acute Review of Systems Constitutional: No fever, No chills Eyes: No worsening of vision, No eye pain Respiratory: No cough, No sputum, No wheezing, No shortness of breath, No dyspnea on exertion, No dyspnea at rest, No hemoptysis Cardiac: No chest pain, No edema, No palpitations Abdomen: No pain, No nausea, No vomiting, No diarrhea, No constipation Musculoskeletal: No joint pain Neurologic: + weakness, No memory loss, No paralysis, No numbness/tingling, No vertigo, No balance problems Heme: No abnormal bleeding/bruising Medications Current Inpatient Medications Medications (Trade) Dose Ordered Sig/Martha Route Start Time Stop Time Status Last Admin Dose Admin Ioversol (Optiray 320) 100 ml UD PRN IV 07/16/17 16:15 07/20/17 16:14 Labetalol HCl (Normodyne IV) 10 mg Q6H PRN IV 07/16/17 22:00 08/15/17 21:59 Ondansetron HCl (Zofran Inj) 4 mg Q8H PRN IV 07/16/17 22:00 08/15/17 21:59 Acetaminophen (Tylenol Supp) 650 mg Q4H PRN ME 07/16/17 22:00 08/15/17 21:59 07/17/17 10:37 650 MG Sodium Chloride 1,000 ml @ 50 mls/hr Q20H IV 07/16/17 22:00 07/17/17 17:59 07/16/17 23:31 50 MLS/HR Acetaminophen (Tylenol Tab) 650 mg Q4H PRN PO 07/16/17 22:15 08/15/17 22:14 Heparin Sodium (Porcine) (Heparin Sq 5000 Unit/0.5ml) 5,000 unit Q8H SQ 07/17/17 06:00 08/16/17 05:59 07/17/17 06:13 5,000 UNIT Nitroglycerin (Nitrostat Tab) 0.4 mg UD PRN SL 07/16/17 22:15 08/15/17 22:14 Miscellaneous Information (Pharmacist Discharge Med Rec Consult) 1 ea UD PRN N/A 07/16/17 22:15 08/15/17 22:14 Atorvastatin Calcium (Lipitor Tab) 40 mg QAM PO 07/17/17 09:00 08/16/17 08:59 07/17/17 11:49 40 MG Objective Vital Signs Date Time Temp Pulse Resp B/P (MAP) Pulse Ox O2 Delivery O2 Flow Rate FiO2 07/17/17 12:00 92 Room Air 07/17/17 11:49 37.2 67 16 144/83 (103) 92 Room Air 07/17/17 10:32 160/88 (112) 07/17/17 08:00 92 Room Air 07/17/17 07:41 37.1 56 16 144/79 (100) 92 Room Air 07/17/17 05:49 37.1 64 14 141/67 (91) 93 Room Air 07/17/17 04:15 Room Air 07/17/17 00:30 Room Air 07/17/17 00:01 37.3 58 19 125/72 (89) 94 Room Air 07/16/17 16:38 71 07/16/17 16:30 73 18 172/87 95 Room Air 07/16/17 16:30 96 Room Air 07/16/17 15:39 36.8 80 20 160/99 97 Room Air Physical Exam General Appearance: no apparent distress Respiratory/Chest: no respiratory distress, no accessory muscle use Cardiovascular: regular rate, rhythm, no edema, no murmur Extremities: normal range of motion, non-tender, normal inspection, no pedal edema, no calf tenderness Neurologic/Psychiatric: alert, oriented x 3, + facial droop (L side), + pertinent finding (L buckle strap puncher strength around 4/5) Laboratory Results Last 24 Hours Test 07/16/17 16:00 07/16/17 16:09 07/16/17 16:12 07/16/17 17:06 White Blood Count 6.68 K/uL Red Blood Count 4.78 M/uL Hemoglobin 15.3 g/dL Hematocrit 43.5 % Mean Corpuscular Volume 91.0 fL Mean Corpuscular Hemoglobin 32.0 pg Mean Corpuscular Hemoglobin Concent 35.2 g/dl Platelet Count 209 K/uL Mean Platelet Volume 10.8 fL Neutrophils (%) (Auto) 70.7 % Lymphocytes (%) (Auto) 17.5 % Monocytes (%) (Auto) 10.0 % Eosinophils (%) (Auto) 0.9 % Basophils (%) (Auto) 0.6 % Neutrophils # (Auto) 4.72 K/uL Lymphocytes # (Auto) 1.17 K/uL Monocytes # (Auto) 0.67 K/uL Eosinophils # (Auto) 0.06 K/uL Basophils # (Auto) 0.04 K/uL RDW Standard Deviation 44.8 fL RDW Coefficient of Variation 13.4 % Immature Granulocyte % (Auto) 0.3 % Immature Granulocyte # (Auto) 0.02 K/uL Prothrombin Time 10.3 SECONDS Prothromb Time International Ratio 1.0 Activated Partial Thromboplast Time 24.3 SECONDS Partial Thromboplastin Ratio 0.9 Sodium Level 138 mmol/L Potassium Level 4.0 mmol/L Chloride Level 106 mmol/L Carbon Dioxide Level 26 mmol/L Anion Gap 6.0 mmol/L 16.0 mmol/L Blood Urea Nitrogen 12 mg/dl Creatinine 0.59 mg/dl Est Creatinine Clear Calc Drug Dose 82.8 ml/min Estimated GFR () 108.4 Estimated GFR (Non- 93.5 BUN/Creatinine Ratio 20.6 Random Glucose 103 mg/dl Calcium Level 8.8 mg/dl Magnesium Level 2.2 mg/dl Total Creatine Kinase 55 U/L Creatine Kinase MB 1.1 ng/ml Creatine Kinase MB Ratio 2.0 Troponin I < 0.015 ng/ml Triglycerides Level 48 mg/dl Cholesterol Level 138 mg/dl HDL Cholesterol 54 mg/dl LDL Cholesterol, Calculated 74 mg/dl VLDL Cholesterol, Calculated 10 mg/dl Cholesterol/HDL Ratio 2.6 Bedside Glucose 104 mg/dl Bedside Hemoglobin 15.0 g/dl Bedside Hematocrit 44 % Bedside Sodium 141 mEq/L Bedside Potassium 4.0 mEq/L Bedside Chloride 103 mEq/L Bedside Total CO2 27 mEq/l Bedside Blood Urea Nitrogen 12 mg/dl Bedside Creatinine 0.6 mg/dl Bedside Glucose (other) 104 mg/dl Bedside Ionized Calcium (Denys) 1.10 mmol/l Urine Color YELLOW Urine Appearance CLEAR Urine pH 6.5 Urine Specific [place] <= 1.005 Urine Protein NEG Urine Glucose (UA) NEG Urine Ketones NEG Urine Occult Blood TRACE Urine Nitrite NEG Urine Bilirubin NEG Urine Urobilinogen NEG Urine Leukocyte Esterase NEG Urine RBC 0-4 /hpf Urine WBC 0 /hpf Urine Epithelial Cells 0-5 /lpf Urine Bacteria NEG Test 07/17/17 06:01 White Blood Count 6.52 K/uL Red Blood Count 4.50 M/uL Hemoglobin 14.5 g/dL Hematocrit 41.1 % Mean Corpuscular Volume 91.3 fL Mean Corpuscular Hemoglobin 32.2 pg Mean Corpuscular Hemoglobin Concent 35.3 g/dl RDW Standard Deviation 44.3 fL RDW Coefficient of Variation 13.4 % Platelet Count 200 K/uL Mean Platelet Volume 10.9 fL Sodium Level 143 mmol/L Potassium Level 3.7 mmol/L Chloride Level 111 mmol/L Carbon Dioxide Level 27 mmol/L Anion Gap 5.0 mmol/L Blood Urea Nitrogen 9 mg/dl Creatinine 0.50 mg/dl Est Creatinine Clear Calc Drug Dose 99.6 ml/min Estimated GFR () 114.5 Estimated GFR (Non- 98.8 BUN/Creatinine Ratio 17.1 Random Glucose 88 mg/dl Calcium Level 8.5 mg/dl Magnesium Level 2.4 mg/dl Thyroid Stimulating Hormone (TSH) 1.710 uIu/ml Assessment and Plan This is a 71 year old female with a PMH of hyperlipidemia, fibromyalgia, GERD - presents with acute CVA Acute L MCA Infarct - Head CT - L MCA Infarct - echo reviewed, vitals reviewed - patient with elevated blood pressure, possibly related to hypertension and hyperlipidemia - PT/OT/speech evals placed - she failed swallow eval yesterday (07/16) - passed the swallow evaluation today (07/17) - regular diet - started aspirin, Plavix and Lipitor - further management as per neurology Fibromyalgia - continue Cymbalta, Gabapentin GERD - PPI DVT ppx - subq heparin FULL CODE
--- NOTE | 2017-07-17 13:38 | Neurology Consultation ---
Neurology Consultation Date of Consultation: Jul 17, 2017. Attending Physician: Luis Young DO Primary Care Physician: Kary Chan D.O. Reason for Consultation: stroke History of Present Illness Source: patient Marie is a 71 year old female with PMH fibromyalgia, GERD, depression, anxiety, DL, tobacco abuse presented to ER with complaint of right-sided facial drooping and right arm weakness 07/16/2017 she woke around 11 AM today and noticed she had some slurred speech and had sensation that right side of tongue felt swollen. She had trouble swallowing her coffee. She looked in mirror and saw that she had right facial drooping and was able to smile but she ignored the symptoms. At approximately 1:00-2:00 PM she noted right arm weakness. She decided to drive herself to the ER in a standard car. She drove from [place] [facility] but by the time she arrived at the ED she was unable to use the arm. Once in the ED her arm started to improve. She is a ppd smoker x 22 years she quit but then her and she started again. no EtOh use but she drinks alot of coffee. She is currently on heparin gtt. denies CP, SOB, abdominal pain, swallowing issues, vision changes, N V, falls. Past Medical/Surgical History Medical Problems: (1) CVA (cerebral vascular accident) Status: Acute Social History Smoking Status: Current every day smoker Smokeless Tobacco Use: No Alcohol Use: none Drug Use: none Marital Status: Allergies Coded Allergies: No Known Allergies (Unverified , 07/16/17) Current Inpatient Medications Current Inpatient Medications Medications (Trade) Dose Ordered Sig/Martha Route Start Time Stop Time Status Last Admin Dose Admin Ioversol (Optiray 320) 100 ml UD PRN IV 07/16/17 16:15 07/20/17 16:14 Labetalol HCl (Normodyne IV) 10 mg Q6H PRN IV 07/16/17 22:00 08/15/17 21:59 Ondansetron HCl (Zofran Inj) 4 mg Q8H PRN IV 07/16/17 22:00 08/15/17 21:59 Acetaminophen (Tylenol Supp) 650 mg Q4H PRN NM 07/16/17 22:00 08/15/17 21:59 07/17/17 10:37 650 MG Sodium Chloride 1,000 ml @ 50 mls/hr Q20H IV 07/16/17 22:00 07/17/17 17:59 07/16/17 23:31 50 MLS/HR Acetaminophen (Tylenol Tab) 650 mg Q4H PRN PO 07/16/17 22:15 08/15/17 22:14 Heparin Sodium (Porcine) (Heparin Sq 5000 Unit/0.5ml) 5,000 unit Q8H SQ 07/17/17 06:00 08/16/17 05:59 07/17/17 06:13 5,000 UNIT Nitroglycerin (Nitrostat Tab) 0.4 mg UD PRN SL 07/16/17 22:15 08/15/17 22:14 Miscellaneous Information (Pharmacist Discharge Med Rec Consult) 1 ea UD PRN N/A 07/16/17 22:15 08/15/17 22:14 Atorvastatin Calcium (Lipitor Tab) 40 mg QAM PO 07/17/17 09:00 08/16/17 08:59 07/17/17 11:49 40 MG Aspirin (Ecotrin Tab) 81 mg QAM PO 07/18/17 09:00 08/17/17 08:59 Clopidogrel Bisulfate (plAVix TAB) 75 mg QAM PO 07/18/17 09:00 08/17/17 08:59 Gabapentin (Neurontin Cap) 300 mg TID PO 07/17/17 14:00 08/16/17 13:59 Multivitamins (Multivitamin Tab) 1 tab QPM PO 07/17/17 21:00 08/16/17 20:59 Pantoprazole Sodium (Protonix Tab) 40 mg QAM PO 07/18/17 09:00 08/17/17 08:59 Duloxetine HCl (Cymbalta Cap) 30 mg DAILY PO 07/18/17 09:00 08/17/17 08:59 UNV Duloxetine HCl (Cymbalta Cap) 60 mg DAILY PO 07/18/17 09:00 08/17/17 08:59 UNV Physical Exam Vital Signs (Past 24 Hrs): Date Time Temp Pulse Resp B/P (MAP) Pulse Ox O2 Delivery O2 Flow Rate FiO2 07/17/17 12:00 92 Room Air 07/17/17 11:49 37.2 67 16 144/83 (103) 92 Room Air 07/17/17 10:32 160/88 (112) 07/17/17 08:00 92 Room Air 07/17/17 07:41 37.1 56 16 144/79 (100) 92 Room Air 07/17/17 05:49 37.1 64 14 141/67 (91) 93 Room Air 07/17/17 04:15 Room Air 07/17/17 00:30 Room Air 07/17/17 00:01 37.3 58 19 125/72 (89) 94 Room Air 07/16/17 16:38 71 07/16/17 16:30 73 18 172/87 95 Room Air 07/16/17 16:30 96 Room Air 07/16/17 15:39 36.8 80 20 160/99 97 Room Air Physical Exam: Constitutional:appearance nourished, healthy and normal Ears, Nose, Mouth and Throat: mucous membranes moist, no injection and skin normal, eyes normal Cardiovascular: normal S-1 and S-2 and regular rate and rhythm Respiratory: course breath sounds Musculoskeletal: no peripheral edema and good distal pulses Skin: no stigmata of neurocutaneous disease noted and normal and intact Eyes: extraocular muscles intact (EOMI) and pupils equal, round and reactive to light (PERRL) NEUROLOGIC EXAMINATION: Mental status: Alert and interactive Oriented to full date and location Oriented to person Speech slurring of speech Cranial Nerves right facial droop with flattening or nasolabial fold, eye brows symmetric Reflexes: Deep tendon reflexes were symmetrical and graded 2/5. 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 and intrinsic 4/5, left 5/5, hip flex patellar flex ext plantar flex ext 5/5 bilaterally Laboratory Results Past 24 Hours: 07/17/17 06:01 07/17/17 06:01 Test 07/16/17 16:00 07/16/17 16:09 07/16/17 16:12 07/16/17 17:06 Immature Granulocyte % (Auto) 0.3 % White Blood Count 6.68 K/uL (4.8-10.8) Red Blood Count 4.78 M/uL (4.2-5.4) Hemoglobin 15.3 g/dL (12.0-16.0) Hematocrit 43.5 % (37-47) Mean Corpuscular Volume 91.0 fL (80-100) Mean Corpuscular Hemoglobin 32.0 pg (25-34) Mean Corpuscular Hemoglobin Concent 35.2 g/dl (32-36) Platelet Count 209 K/uL (130-400) Mean Platelet Volume 10.8 fL (7.4-10.4) Neutrophils (%) (Auto) 70.7 % Lymphocytes (%) (Auto) 17.5 % Monocytes (%) (Auto) 10.0 % Eosinophils (%) (Auto) 0.9 % Basophils (%) (Auto) 0.6 % Neutrophils # (Auto) 4.72 K/uL (1.4-6.5) Lymphocytes # (Auto) 1.17 K/uL (1.2-3.4) Monocytes # (Auto) 0.67 K/uL (0.11-0.59) Eosinophils # (Auto) 0.06 K/uL (0-0.5) Basophils # (Auto) 0.04 K/uL (0-0.2) Immature Granulocyte # (Auto) 0.02 K/uL (0.00-0.02) Prothrombin Time 10.3 SECONDS (9.0-12.0) Prothromb Time International Ratio 1.0 (0.9-1.1) Activated Partial Thromboplast Time 24.3 SECONDS (21.0-31.0) Partial Thromboplastin Ratio 0.9 Total Creatine Kinase 55 U/L (26-192) Creatine Kinase MB 1.1 ng/ml (0.5-3.6) Creatine Kinase MB Ratio 2.0 (0-3.0) Troponin I < 0.015 ng/ml (0-0.045) Triglycerides Level 48 mg/dl (0-150) Cholesterol Level 138 mg/dl (0-200) HDL Cholesterol 54 mg/dl LDL Cholesterol, Calculated 74 mg/dl VLDL Cholesterol, Calculated 10 mg/dl Cholesterol/HDL Ratio 2.6 Bedside Glucose 104 mg/dl (70-90) Bedside Hemoglobin 15.0 g/dl (12.0-16.0) Bedside Hematocrit 44 % (37-47) Bedside Sodium 141 mEq/L (135-144) Bedside Potassium 4.0 mEq/L (3.3-5.0) Bedside Chloride 103 mEq/L (101-112) Bedside Total CO2 27 mEq/l (24-31) Bedside Blood Urea Nitrogen 12 mg/dl (7-18) Bedside Creatinine 0.6 mg/dl (0.6-1.3) Bedside Glucose (other) 104 mg/dl (70-99) Bedside Ionized Calcium (Denys) 1.10 mmol/l (1.12-1.32) Urine Color YELLOW Urine Appearance CLEAR (CLEAR) Urine pH 6.5 (4.5-7.5) Urine Specific Phelps <= 1.005 (1.000-1.030) Urine Protein NEG (NEG) Urine Glucose (UA) NEG (NEG) Urine Ketones NEG (NEG) Urine Occult Blood TRACE (NEG) Urine Nitrite NEG (NEG) Urine Bilirubin NEG (NEG) Urine Urobilinogen NEG (NEG) Urine Leukocyte Esterase NEG (NEG) Urine RBC 0-4 /hpf (0-4) Urine WBC 0 /hpf (0-5) Urine Epithelial Cells 0-5 /lpf (0-5) Urine Bacteria NEG (NEG) Test 07/17/17 06:01 Red Blood Count 4.50 M/uL (4.2-5.4) Mean Corpuscular Volume 91.3 fL (80-100) Mean Corpuscular Hemoglobin 32.2 pg (25-34) Mean Corpuscular Hemoglobin Concent 35.3 g/dl (32-36) RDW Standard Deviation 44.3 fL (36.4-46.3) RDW Coefficient of Variation 13.4 % (11.5-14.5) Mean Platelet Volume 10.9 fL (7.4-10.4) Anion Gap 5.0 mmol/L (3-11) Est Creatinine Clear Calc Drug Dose 99.6 ml/min Estimated GFR () 114.5 Estimated GFR (Non- 98.8 BUN/Creatinine Ratio 17.1 (10-20) Calcium Level 8.5 mg/dl (8.5-10.1) Magnesium Level 2.4 mg/dl (1.8-2.4) Thyroid Stimulating Hormone (TSH) 1.710 uIu/ml (0.300-4.500) Imaging CTA head- Negative study CTA neck - . Moderate atherosclerotic plaque within the bilateral internal carotid arteries without significant stenosis. No dissection. Nonvisualization of the left submandibular gland. Suspected multiple calculi within left submandibular duct. Impression 71 year old female s/p right MCA stroke with resolving right arm weakness ongoing right facial droop Plan 1. MRI with and without brain - R MCA stroke evaluation 2. CTA head and neck no vascular issues -modest plaques 3. heparin gtt per stroke protocol and permissive HTN 4. plavix 75 mg and aspirin 81 mg daily x 3 months and then stop plavix aspirin for a life time 5. optimize DM, DL, HTN- DL < 70 6. smoking cessation strongly urged 7. decrease caffeine consumption 8. PT/OT/speech for discharge needs 9. TTE pending read 10. will likely need a ZIO or cardionet as outpatient to evaluate for irregular heart rhythm 11 further recommendations to follow I have seen and discussed above patient with Dr Addison Baez, neurology Patient seen and examined above reviewed with Marie HUSSEIN C suspect a deep left hemisphere small vessel event in light of progression of deficits over time but will await mri and echo as cta etc show no clear source of emboli etc agree with above recommendations Terry Baez MD
[2017-07-17] MEDS: GABAPENTIN 300 MG CAP PO SCH ×2 (13:56→21:42)
[2017-07-17] MEDS ORDERED: GADAVIST IV PRN (20:45)
[2017-07-17] MEDS ORDERED: MULTIVITAMIN TAB PO SCH (21:00)
--- NOTE | 2017-07-17 21:35 | DIAGNOSTIC IMAGING REPORT ---
BRAIN COMBO CLINICAL HISTORY: 71 years-old Female presenting with new onset of stroke symptoms R MCA stroke suspected. TECHNIQUE: Multisequence, multiplanar MR imaging of the brain was performed before and after the administration of intravenous contrast. IV contrast: 7.5 mL of Gadavist. COMPARISON: CT head performed the previous day. FINDINGS: Several sequences are degraded by motion artifact. This mildly limits diagnostic sensitivity the exam. Proportional ventricular and sulcal prominence, likely age-related parenchymal volume loss. Periventricular and subcortical white matter T2/FLAIR hyperintensity, nonspecific but likely indicative of chronic small vessel ischemic change. No mass effect or midline shift. Focal restricted diffusion in a limited portion of the left middle cerebral artery territory distribution involving the posterior left frontal lobe. No extra-axial fluid collection. T2 skull base flow voids preserved. No abnormal parenchymal enhancement. Bone marrow signal intensity within the calvarium within normal limits. IMPRESSION: 1. Acute infarct in the limited portion of the posterior left frontal lobe in the left MCA territory that correlates with the finding on CT from yesterday. No hemorrhagic conversion. Electronically signed by: Chris Fairchild M.D. 07/17/2017 9:34 PM Dictated Date/Time: 07/17/2017 9:29 PM
[2017-07-18 00:17] VITALS: BP 140/72; PULSE 63; TEMP 37; O2SAT 96
[2017-07-18 03:20] VITALS: BP 143/94; PULSE 70; TEMP 36.8; O2SAT 96
[2017-07-18] MEDS: HEPARIN SOD 5000 UNIT/0.5 ML CARP SQ SCH ×2 (06:31→13:51)
[2017-07-18 07:50] VITALS: BP 128/79; PULSE 61; TEMP 37.1; O2SAT 92
[2017-07-18] MEDS: GABAPENTIN 300 MG CAP PO SCH ×2 (08:23→13:50)
[2017-07-18] MEDS: ATORVASTATIN 40 MG TAB PO SCH (08:23)
--- NOTE | 2017-07-18 08:48 | Progress Note ---
Subjective Date of Service: Jul 18, 2017. Subjective Pt evaluation today including: conversation w/ patient, physical exam, lab review, review of studies, review of inpatient medication list Saw/examined the patient in room 204 She is doing well, much improved R hand family physician and R upper extremity use No problems with lower extremities R facial droop improving, but still present Problem List Medical Problems: (1) CVA (cerebral vascular accident) Status: Acute Review of Systems Respiratory: + cough (intermittent), + wheezing (intermittent), No sputum, No shortness of breath, No dyspnea on exertion Cardiac: No chest pain, No palpitations Neurologic: + weakness, No memory loss, No paralysis, No numbness/tingling, No vertigo, No balance problems Psychiatric: No depression symptoms, No anxiety, No insomnia Heme: No abnormal bleeding/bruising Medications Current Inpatient Medications Medications (Trade) Dose Ordered Sig/Martha Route Start Time Stop Time Status Last Admin Dose Admin Ioversol (Optiray 320) 100 ml UD PRN IV 07/16/17 16:15 07/20/17 16:14 Labetalol HCl (Normodyne IV) 10 mg Q6H PRN IV 07/16/17 22:00 08/15/17 21:59 Ondansetron HCl (Zofran Inj) 4 mg Q8H PRN IV 07/16/17 22:00 08/15/17 21:59 Acetaminophen (Tylenol Supp) 650 mg Q4H PRN IA 07/16/17 22:00 08/15/17 21:59 07/17/17 10:37 650 MG Acetaminophen (Tylenol Tab) 650 mg Q4H PRN PO 07/16/17 22:15 08/15/17 22:14 Heparin Sodium (Porcine) (Heparin Sq 5000 Unit/0.5ml) 5,000 unit Q8H SQ 07/17/17 06:00 08/16/17 05:59 07/18/17 06:31 5,000 UNIT Nitroglycerin (Nitrostat Tab) 0.4 mg UD PRN SL 07/16/17 22:15 08/15/17 22:14 Miscellaneous Information (Pharmacist Discharge Med Rec Consult) 1 ea UD PRN N/A 07/16/17 22:15 08/15/17 22:14 Atorvastatin Calcium (Lipitor Tab) 40 mg QAM PO 07/17/17 09:00 08/16/17 08:59 07/18/17 08:23 40 MG Aspirin (Ecotrin Tab) 81 mg QAM PO 07/18/17 09:00 08/17/17 08:59 07/18/17 08:22 81 MG Clopidogrel Bisulfate (plAVix TAB) 75 mg QAM PO 07/18/17 09:00 08/17/17 08:59 07/18/17 08:23 75 MG Gabapentin (Neurontin Cap) 300 mg TID PO 07/17/17 14:00 08/16/17 13:59 07/18/17 08:23 300 MG Multivitamins (Multivitamin Tab) 1 tab QPM PO 07/17/17 21:00 08/16/17 20:59 07/17/17 21:42 1 TAB Pantoprazole Sodium (Protonix Tab) 40 mg QAM PO 07/18/17 09:00 08/17/17 08:59 07/17/17 14:28 40 MG Duloxetine HCl (Cymbalta Cap) 30 mg DAILY PO 07/18/17 09:00 08/17/17 08:59 07/18/17 08:22 30 MG Duloxetine HCl (Cymbalta Cap) 60 mg DAILY PO 07/18/17 09:00 08/17/17 08:59 07/18/17 08:22 60 MG Gadobutrol (Gadavist) 7.5 mmol UD PRN IV 07/17/17 20:45 07/21/17 20:44 Objective Vital Signs Date Time Temp Pulse Resp B/P (MAP) Pulse Ox O2 Delivery O2 Flow Rate FiO2 07/18/17 07:50 37.1 61 20 128/79 (95) 92 07/18/17 04:00 Room Air 07/18/17 03:20 36.8 70 15 143/94 (110) 96 Room Air 07/18/17 00:17 37.0 63 16 140/72 (94) 96 Room Air 07/18/17 00:01 Room Air 07/17/17 20:00 Room Air 07/17/17 19:33 36.6 54 20 143/70 (94) 96 Room Air 07/17/17 16:55 137/72 (93) 07/17/17 16:00 92 Room Air 07/17/17 15:46 36.4 66 20 170/81 98 Room Air 07/17/17 15:37 36.4 66 20 170/81 (110) 96 Room Air 07/17/17 14:28 157/87 (110) 07/17/17 12:00 92 Room Air 07/17/17 11:49 37.2 67 16 144/83 (103) 92 Room Air 07/17/17 10:32 160/88 (112) Physical Exam General Appearance: no apparent distress Respiratory/Chest: chest non-tender, no respiratory distress, no accessory muscle use, + wheezing (minimal end expiratory wheezing) Cardiovascular: regular rate, rhythm, no edema, no gallop, no JVD, no murmur Extremities: normal range of motion, non-tender, normal inspection, no pedal edema, no calf tenderness Neurologic/Psychiatric: no motor/sensory deficits, alert, normal mood/affect, + facial droop (R facial droop) Assessment and Plan This is a 71 year old female with a PMH of hyperlipidemia, fibromyalgia, GERD - presents with acute CVA Acute L MCA Infarct 07/18 - Brain MRI - L MCA infarct, no hemorrhagic conversion, similar to Head CT findings - R family physician strength is much improved - R facial droop improved - eager to get home - continue PT/OT/speech therapy - continue aspirin/Plavix/Lipitor - stop Plavix in 3 months - outpatient Zio patch 07/17 - Head CT - L MCA Infarct - echo reviewed, vitals reviewed - patient with elevated blood pressure, possibly related to hypertension and hyperlipidemia - PT/OT/speech evals placed - she failed swallow eval yesterday (07/16) - passed the swallow evaluation today (07/17) - regular diet - started aspirin, Plavix and Lipitor - further management as per neurology Fibromyalgia - continue Cymbalta, Gabapentin GERD - PPI Tobacco Use Disorder - wants to stop smoking at this time - does not want nicotine patches, will quit cold turkey - outpatient PCP reinforcement - outpatient PFTs DVT ppx - subq heparin FULL CODE
[2017-07-18] MEDS ORDERED: PANTOprazole SOD 40 MG TAB PO SCH (09:00)
[2017-07-18] MEDS ORDERED: DULOXETINE (CYMBALTA) 30 MG CAP PO SCH (09:00)
[2017-07-18] MEDS ORDERED: ASPIRIN 81 MG ECTAB PO SCH (09:00)
[2017-07-18] MEDS ORDERED: DULOXETINE HCL 60 MG CAP PO SCH (09:00)
[2017-07-18] MEDS ORDERED: CLOPIDOGREL BISULFATE 75 MG TAB PO SCH (09:00)
[2017-07-18 11:09] VITALS: BP 157/91; PULSE 59; TEMP 36.9; O2SAT 98
--- NOTE | 2017-07-18 14:38 | Neurology Progress Notes ---
Neurology Progress Note Date of Service Jul 18, 2017. Subjective Marie is a 71 year old female with PMH fibromyalgia, GERD, depression, anxiety, DL, tobacco abuse presented to ER with complaint of right-sided facial drooping and right arm weakness 07/16/2017 she woke around 11 AM today and noticed she had some slurred speech and had sensation that right side of tongue felt swollen. She had trouble swallowing her coffee. She looked in mirror and saw that she had right facial drooping and was able to smile but she ignored the symptoms. At approximately 1:00-2:00 PM she noted right arm weakness. She decided to drive herself to the ER in a standard car. She drove from [facility] but by the time she arrived at the ED she was unable to use the arm. Once in the ED her arm started to improve. She is a ppd smoker x 22 years she quit but then her and she started again. no EtOh use but she drinks alot of coffee. She is doing well she feels subjectively she is doing better and her right arm weakness is resolving. discussed no driving until cleared by neurology and physical therapy. She is having physical therapy come to the home.Her brother in law is coming to the hospital to drive her car home although she states she knows she could drive. denies CP, SOB, abdominal pain, new onset weakness, numbness tingling, N, V, falls, vision changes. Objective Date Time Temp Pulse Resp B/P (MAP) Pulse Ox O2 Delivery O2 Flow Rate FiO2 07/18/17 12:00 Room Air 07/18/17 11:09 36.9 59 18 157/91 (113) 98 07/18/17 08:00 Room Air 07/18/17 07:50 37.1 61 20 128/79 (95) 92 07/18/17 04:00 Room Air 07/18/17 03:20 36.8 70 15 143/94 (110) 96 Room Air 07/18/17 00:17 37.0 63 16 140/72 (94) 96 Room Air 07/18/17 00:01 Room Air 07/17/17 20:00 Room Air 07/17/17 19:33 36.6 54 20 143/70 (94) 96 Room Air 07/17/17 16:55 137/72 (93) 07/17/17 16:00 92 Room Air 07/17/17 15:46 36.4 66 20 170/81 98 Room Air 07/17/17 15:37 36.4 66 20 170/81 (110) 96 Room Air 07/17/17 14:28 157/87 (110) no new labs Imaging: TTE- * Normal LV chamber size with moderate concentric LVH. * Normal LV systolic function, EF 60-65%. * No segmental left ventricular wall motion abnormalities are noted. * Grade I diastolic dysfunction. * Aortic valve sclerosis mild, without significant aortic valvular stenosis. * The interatrial septum is intact with no evidence for an atrial septal defect. * Injection of contrast documented no interatrial shunt. * Small, loculated anterior pericardial effusion with stranding to suggest chronicity.\ MRI brain with and without- Acute infarct in the limited portion of the posterior left frontal lobe in the left MCA territory that correlates with the finding on CT from yesterday. No hemorrhagic conversion. Exam: Physical Exam: Constitutional: appearance nourished, healthy and normal Ears, Nose, Mouth and Throat: mucous membranes moist, no injection and skin normal, eyes normal Cardiovascular: normal S-1 and S-2 and regular rate and rhythm Respiratory: clear to auscultation (CTA) and no rales, rhonchi or wheeze Musculoskeletal: no peripheral edema and good distal pulses Skin: no stigmata of neurocutaneous disease noted and normal and intact Eyes: extraocular muscles intact (EOMI) and pupils equal, round and reactive to light (PERRL) NEUROLOGIC EXAMINATION: Mental status: Alert and interactive Oriented to full date and location Oriented to person Speech fluent with no evidence of aphasia Cranial Nerves right nasolabial fold flattening, eye brows equal Coordination: finger to nose with no bi pass or tremor, slight dysmetric Gait/Stance: Posture sitting up in bed Strength: 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,left 5/5, hip flex plantar flex ext 5/5 bilaterally Current Inpatient Medications Medications (Trade) Dose Ordered Sig/Martha Route Start Time Stop Time Status Last Admin Dose Admin Ioversol (Optiray 320) 100 ml UD PRN IV 07/16/17 16:15 07/20/17 16:14 Labetalol HCl (Normodyne IV) 10 mg Q6H PRN IV 07/16/17 22:00 08/15/17 21:59 Ondansetron HCl (Zofran Inj) 4 mg Q8H PRN IV 07/16/17 22:00 08/15/17 21:59 Acetaminophen (Tylenol Supp) 650 mg Q4H PRN NE 07/16/17 22:00 08/15/17 21:59 07/17/17 10:37 650 MG Acetaminophen (Tylenol Tab) 650 mg Q4H PRN PO 07/16/17 22:15 08/15/17 22:14 Heparin Sodium (Porcine) (Heparin Sq 5000 Unit/0.5ml) 5,000 unit Q8H SQ 07/17/17 06:00 08/16/17 05:59 07/18/17 13:51 5,000 UNIT Nitroglycerin (Nitrostat Tab) 0.4 mg UD PRN SL 07/16/17 22:15 08/15/17 22:14 Miscellaneous Information (Pharmacist Discharge Med Rec Consult) 1 ea UD PRN N/A 07/16/17 22:15 08/15/17 22:14 Atorvastatin Calcium (Lipitor Tab) 40 mg QAM PO 07/17/17 09:00 08/16/17 08:59 07/18/17 08:23 40 MG Aspirin (Ecotrin Tab) 81 mg QAM PO 07/18/17 09:00 08/17/17 08:59 07/18/17 08:22 81 MG Clopidogrel Bisulfate (plAVix TAB) 75 mg QAM PO 07/18/17 09:00 08/17/17 08:59 07/18/17 08:23 75 MG Gabapentin (Neurontin Cap) 300 mg TID PO 07/17/17 14:00 08/16/17 13:59 07/18/17 13:50 300 MG Multivitamins (Multivitamin Tab) 1 tab QPM PO 07/17/17 21:00 08/16/17 20:59 07/17/17 21:42 1 TAB Pantoprazole Sodium (Protonix Tab) 40 mg QAM PO 07/18/17 09:00 08/17/17 08:59 07/17/17 14:28 40 MG Duloxetine HCl (Cymbalta Cap) 30 mg DAILY PO 07/18/17 09:00 08/17/17 08:59 07/18/17 08:22 30 MG Duloxetine HCl (Cymbalta Cap) 60 mg DAILY PO 07/18/17 09:00 08/17/17 08:59 07/18/17 08:22 60 MG Gadobutrol (Gadavist) 7.5 mmol UD PRN IV 07/17/17 20:45 07/21/17 20:44 Impression 71 year old female s/p left MCA stroke with resolving right arm weakness ongoing right facial droop Plan 1. MRI with and without brain - left MCA stroke in cortex 2. CTA head and neck no vascular issues -modest plaques 3. will need a ZIO or cardionet as outpatient to evaluate for irregular heart rhythm 4. plavix 75 mg and aspirin 81 mg daily x 3 months and then stop plavix aspirin for a life time 5. optimize DM, DL, HTN- DL < 70 6. smoking cessation strongly urged 7. decrease caffeine consumption 8. PT/OT/speech for discharge needs- out patient home PT arranged 9. TTE no ASD 10. ok to discharge, no driving until cleared by neurology and physical therapy 11. neurology follow up in 2-[address] Addison Baez or Marie Griffin PAC schedule I have seen and discussed above patient with Dr Addison Baez, neurology I have seen this patient and reviewed her imaging studies she has made a remarkable partial recovery and imaging shows a small localized cortical cva which can mimic a pure motor stroke syndrome We need now however to exclude an embolic source and with the negative echo a zio patch is needed we will continue the dual antiplatelet rx and the rest of the post stroke algorithmic care package and discharge today with outpatient in home pt and neuro clinic in about four weeks post zio patch results Addison Baez MD
[2017-07-18] MEDS ORDERED: LPT40 PO (14:58)
[2017-07-18] MEDS ORDERED: ASPI-320 PO (14:58)
[2017-07-18] MEDS ORDERED: PLV75 PO (14:58)
[2017-07-18] MEDS ORDERED: PRT40 PO (14:58)
--- NOTE | 2017-07-18 15:09 | Discharge Instructions ---
Discharge Instructions Date of Service Jul 18, 2017. Admission Reason for Admission: Stroke Discharge Discharge Diagnosis / Problem: Acute CVA Discharge Goals Goal(s): Decrease discomfort, Improve function, Diagnostic testing, Therapeutic intervention Activity Recommendations Activity Limitations: per Instructions/Follow-up section Driving or Machine Use: . Instructions / Follow-Up Instructions / Follow-Up Please follow-up with Dr. Vazquez on July 24 at 12:45PM Please follow-up with neurology in 2-3 weeks - you will get a phone call with a date/time * No driving until outpatient follow-up with neurology * You will be on aspirin and Plavix for 3 months; then follow-up with neurology to stop one of them * Take Lipitor daily * Please stop smoking; talk to your primary care if you need more help * You will need a Zio patch, which is a heart monitor as an outpatient; talk to your primary care and neurologist * Stop taking Prilosec, you will now be on Protonix for your reflux * Cut back on your caffeine intake Risk Factors for Stroke: You can reduce your chances of stroke by working with your medical provider to adopt a healthy lifestyle. Some specific ways to lower your chance of stroke are: * If you are a smoker, now is the time to stop smoking cigarettes * If you are diabetic, improve the control of your blood sugars * Avoid excessive amounts of alcohol * Control high blood pressure * Lose weight if you are overweight * Be sure to lead an active lifestyle * Eat a healthy diet low in salt, cholesterol and fat You should know about other risk factors for stroke that you are unable to control. These include: * Age 55 years or older * Male gender * Certain racial groups: , or / * Family History of Stroke, Mini stroke or Heart Attack * Sickle Cell Disease Follow Up: It is important for you to keep your follow up appointments with your medical provider. Current Hospital Diet Patient's current hospital diet: Regular Diet Discharge Diet Recommended Diet: Regular Diet Pending Studies Studies pending at discharge: no Laboratory Results Lipid Panel Test 07/16/17 16:00 Range/Units Triglycerides Level 48 0-150 mg/dl Cholesterol Level 138 0-200 mg/dl HDL Cholesterol 54 mg/dl Cholesterol/HDL Ratio 2.6 LDL Cholesterol, Calculated 74 mg/dl Medical Emergencies . Who to Call and When: Medical Emergencies: Call 911 immediately if you experience any of the following warning signs and symptoms of Stroke: * Sudden numbness or weakness of the face, arm or leg, especially on one side of the body * Sudden confusion, trouble speaking or understanding * Sudden trouble seeing in one or both eyes * Sudden trouble walking, dizziness, loss of balance or coordination * Sudden severe headache with no cause Do not delay calling 911 if you experience any warning signs or symptoms of a stroke. Delay in seeking medical attention may affect what treatments can be given to you. . Non-Emergent Contact Non-Emergency issues call your: Primary Care Provider, Neurologist . . "Provider Documentation" section prepared by Luis Young. . Stroke Core Measures Reason no t-PA for Stroke: Treatment not indicated Reason no antithrom by day 2: Treatment provided - N/A Reason no antithrom at D/C: Treatment provided - N/A Reason no statin at D/C: Treatment provided - N/A Reason no anticoag w/a fib: Treatment not indicated
--- NOTE | 2017-07-18 15:12 | Discharge Summary ---
Discharge Summary Date of Service Jul 18, 2017. Discharge Summary Admission Date: Jul 16, 2017 at 22:20 Discharge Date: Jul 18, 2017 Discharge Disposition: Home with services Principal Diagnosis: Acute L MCA Infarct Tobacco Use Disorder Hyperlipidemia Medication Reconciliation New Medications: Aspirin (Aspirin EC Low Dose) 81 Mg Ectab 81 MG PO QAM for 30 Days, #30 TABS 2 Refills Atorvastatin (Lipitor) 40 Mg Tab 40 MG PO QAM for 30 Days, #30 TAB 2 Refills Clopidogrel Bisulfate (Clopidogrel) 75 Mg Tab 75 MG PO QAM for 30 Days, #30 TAB 2 Refills Pantoprazole (Pantoprazole Sodium) 40 Mg Tab 40 MG PO QAM for 30 Days, #30 TAB 2 Refills Continued Medications: Duloxetine HCl (Duloxetine HCl) 30 Mg Cap 30 MG PO DAILY =90MG Duloxetine HCl (Duloxetine HCl) 60 Mg Cap 60 MG PO DAILY =90MG Gabapentin (Gabapentin) 300 Mg Cap 300 MG PO TID Multivitamin (Multivitamin) Tab 1 TAB PO QPM, TAB Tramadol HCl (Tramadol HCl) 50 Mg Tab 50 MG PO BID PRN for Pain Discontinued Medications: Omeprazole ([facility] Omeprazole) 20 Mg Tab 20 MG PO DAILY Simvastatin (Simvastatin) 10 Mg Tab 10 MG PO HS Admission Information HPI (per Admitting provider): Pt is 71 y/o F with PMH fibromyalgia, GERD, depression, anxiety, dyslipidemia presented to ER with complaint of right-sided facial drooping. Patient reports woke up around 11 AM today and noticed she had some slurred speech and had sensation that right side of tongue felt swollen. She had trouble swallowing her coffee. Patient states later looked in mirror and saw that she had right facial drooping and was able to smile. At approximately 1:00-2:00 PM patient reports right arm weakness. She proceeded to drive herself to the ER in a standard collar. Patient states once in the ER had worsening right arm weakness and was able to institution director with her right hand, which has since improved during ER course. Denies fever/chills, diaphoresis, N/V/D/C, JUNG, dizziness, syncope, vision changes, neck pain, CP, SOB, orthopnea, palpitations, cough, otalgia, rhinorrhea, abdominal pain, extremity edema, rashes, urinary symptoms. Denies history of HTN, TIA, stroke. In ER patient given aspirin 300 mg suppository, magnesium sulfate 1 g IV, 1 L NSS. Had her she telemetry stroke recommended no TPA. Physical Exam (per Admitting): General Appearance: no apparent distress, + obese Head: normocephalic, atraumatic Eyes: normal inspection, PERRL, EOMI, sclerae normal ENT: hearing grossly normal, pharynx normal, + pertinent finding (no pharyngeal erythema or edema. Tongue without significant erythema and without edema. uvula midline. mucous membranes moist. ) Neck: supple, no JVD, trachea midline Respiratory/Chest: lungs clear, normal breath sounds, no respiratory distress Cardiovascular: regular rate, rhythm, no murmur, normal peripheral pulses Abdomen/GI: normal bowel sounds, non tender, soft Extremities/Musculoskelatal: no calf tenderness, normal capillary refill, no pedal edema, non-tender, + pertinent finding (Right arm with ROM intact with slow movements. Right institution director strength slightly less than left side. ROM bilateral extremities intact with equal strength. distal pulses intact. sensation to light touch intact) Neurologic/Psych: alert, oriented x 3, + facial droop (right sided), + pertinent finding (+slurred speech. Tongue protrudes to right side. finger to nose intact bilaterally with slow movements with right hand. ) Skin: normal color, warm/dry Hospital Course This is a 71 year old female with a PMH of hyperlipidemia, fibromyalgia, GERD - presents with acute CVA Acute L MCA Infarct 07/18 - Brain MRI - L MCA infarct, no hemorrhagic conversion, similar to Head CT findings - R institution director strength is much improved - R facial droop improved - eager to get home - continue PT/OT/speech therapy - continue aspirin/Plavix/Lipitor - stop Plavix in 3 months - outpatient Zio patch 07/17 - Head CT - L MCA Infarct - echo reviewed, vitals reviewed - patient with elevated blood pressure, possibly related to hypertension and hyperlipidemia - PT/OT/speech evals placed - she failed swallow eval yesterday (07/16) - passed the swallow evaluation today (07/17) - regular diet - started aspirin, Plavix and Lipitor - further management as per neurology Fibromyalgia - continue Cymbalta, Gabapentin GERD - PPI Tobacco Use Disorder - wants to stop smoking at this time - does not want nicotine patches, will quit cold turkey - outpatient PCP reinforcement - outpatient PFTs DVT ppx - subq heparin FULL CODE Total time spent on discharge = 45 minutes This includes examination of the patient, discharge planning, medication reconciliation, and communication with other providers. Discharge Instructions Please follow-up with Dr. Vazquez on July 24 at 12:45PM Please follow-up with neurology in 2-3 weeks - you will get a phone call with a date/time * No driving until outpatient follow-up with neurology * You will be on aspirin and Plavix for 3 months; then follow-up with neurology to stop one of them * Take Lipitor daily * Please stop smoking; talk to your primary care if you need more help * You will need a Zio patch, which is a heart monitor as an outpatient; talk to your primary care and neurologist * Stop taking Prilosec, you will now be on Protonix for your reflux * Cut back on your caffeine intake
[2017-07-18 15:45] VITALS: BP 157/91; PULSE 59; TEMP 36.9; O2SAT 98
--- NOTE | 2017-07-18 16:11 | Pharmacy Progress Note ---
Pharmacist Stroke Counseling Date of Service Jul 18, 2017. Scope Pharmacy has been consulted to provide medication discharge counseling for this patient admitted with ischemic stroke/hemorrhagic stroke/ transient ischemic attack as per the Pharmacist Discharge Counseling for Stroke Patients Protocol. Medications on Discharge New Medications: Aspirin (Aspirin EC Low Dose) 81 Mg Ectab 81 MG PO QAM for 30 Days, #30 TABS 2 Refills Atorvastatin (Lipitor) 40 Mg Tab 40 MG PO QAM for 30 Days, #30 TAB 2 Refills Clopidogrel Bisulfate (Clopidogrel) 75 Mg Tab 75 MG PO QAM for 30 Days, #30 TAB 2 Refills Pantoprazole (Pantoprazole Sodium) 40 Mg Tab 40 MG PO QAM for 30 Days, #30 TAB 2 Refills Continued Medications: Duloxetine HCl (Duloxetine HCl) 30 Mg Cap 30 MG PO DAILY =90MG Duloxetine HCl (Duloxetine HCl) 60 Mg Cap 60 MG PO DAILY =90MG Gabapentin (Gabapentin) 300 Mg Cap 300 MG PO TID Multivitamin (Multivitamin) Tab 1 TAB PO QPM, TAB Tramadol HCl (Tramadol HCl) 50 Mg Tab 50 MG PO BID PRN for Pain Discontinued Medications: Omeprazole (Cvs Omeprazole) 20 Mg Tab 20 MG PO DAILY Simvastatin (Simvastatin) 10 Mg Tab 10 MG PO HS Action The above medications, specifically ones for stroke treatment/prophylaxis, have been reviewed in detail with the patient and/or patient real estate representative(s) prior to discharge. This includes indication, common adverse reactions, drug interactions, and medication administration. Medication counseling has been employed using the teach-back method to ensure understanding. Outcome The patient and/or patient real estate representative(s) have demonstrated understanding of the medications. Please note, they are aware that the pharmacist will call them within 72 hours post-discharge to confirm that the appropriate medications are being taken and answer any further medication related questions the patient might have at that time. Contact information Individual to be contacted: Marie Malik Relationship to patient (if applicable): Self Phone number: [phone] Best time to call: Anytime (she is retired) Additional comments: * Prior to discharge orders, discussed with Dr. Young need to switch home Omeprazole to Protonix. Explained that Omeprazole decr' [id number] metabolism of Plavix into active drug, possible decr' efficacy. Concern with her acute stroke. He was in agreement to change PPI. New Rx sent to her pharmacy. * Met with patient at bedside. She appears knowledgeable and wrote down all instructions/education. * Provided her with pillbox, which she appreciated. Had not used one before. Explained OK to take all meds together. Most Rx's once a day with exception of Gabapentin and Tramadol (prn). She thinks pillbox will help her organize and remember to take meds. * Explained Plavix/Prilosec drug interaction. She understands rationale for med change. Explained after she is done with Plavix, can either stay on Protonix or restart Prilosec. However, she will need to f/u PCP to renew Protonix Rx. * Patient actually quit smoking x 10 years, but restarted after passed. She was successful with quitting "cold turkey", did not need nicotine replacement. She is ready/wants to quit again now. Encouraged smoking cessation. * Aware to monitor for s/sx bleeding, bruising. Aware of Atorvastatin replacing Simvastatin. No issues with Atorvastatin so far in hospital. * She actually has low-dose, enteric-coated aspirin at home. Advised that dual antiplatelet therapy with Plavix + aspirin recommended x 3 months, then she will just be on aspirin monotherapy lifelong. Advised Neurology f/u. Thank you for allowing pharmacy to be involved in the care of this patient. Please call [phone] or [phone] with any additional questions
--- NOTE | 2017-07-22 12:46 | Pharmacy Progress Note ---
Pharmacist Post D/C Phone Note Date of phone call: Jul 22, 2017. Individual with whom pharmacist spoke to: [Patient] The following questions were reviewed during the phone call with responses listed below each: Can you tell me the medications that you are currently taking as well as when and how you take each medication? - Ms. Malik was able to accurately discuss the her new medications. dose, schedule, ADEs were all thoroughly reviewed. When have you missed any doses of your medications? - none What side effects are you having from your medications? - none What questions do you have about your medications? - Asked if it's ok to take Lipitor in the AM. I informed Ms. Malik that Lipitor may be taked in the mornings due to its long t1/2. What problems are you having obtaining your medications? - NONE When is your next appointment with your primary care doctor? - 07/23/17 As per the Pharmacist Discharge Counseling for Stroke Patients Protocol, this phone call has been completed within 72 hours of discharge. Thank you for allowing us to be involved in the care of this patient. Thank you for allowing us to be involved in the care of this patient.
== END 2017-07-18 17:00 | disposition home health service (06) | DRG 66 ==
LOC: C.EDB 15:36 → UNDOADMIN 18:15 → C.2E 18:15
PROVIDERS: ADMIT Internal Medicine; ATTEND Family Medicine
DX: I63.512 Cerebral infarction due to unspecified occlusion or stenosis of left middle cerebral artery (principal); G83.21 Monoplegia of upper limb affecting right dominant side; R29.810 Facial weakness; R47.81 Slurred speech; R13.10 Dysphagia, unspecified; E78.5 Hyperlipidemia, unspecified; F41.9 Anxiety disorder, unspecified; F32.9 Major depressive disorder, single episode, unspecified; M79.7 Fibromyalgia; K21.9 Gastro-esophageal reflux disease without esophagitis; E66.9 Obesity, unspecified; Z79.899 Other long term (current) drug therapy; F17.200 Nicotine dependence, unspecified, uncomplicated; Z68.32 Body mass index [BMI] 32.0-32.9, adult